=== PATIENT | female | born 1970 | race Caucasian/White ===

== ENCOUNTER 2022-10-21 13:32 | Outpatient (CLI) | payer BC, SELFPAY ==
--- NOTE | 2022-10-21 13:40 | CRLHL7_ITS ---
For Patients: As a result of the Century Cures Act, medical imaging exams and procedure reports are released immediately into your electronic medical record. You may view this report before your referring provider. If you have questions, please contact your health care provider. RIGHT SCREENING MAMMOGRAM WITH COMPUTER-AIDED DETECTION AND TOMOSYNTHESIS TECHNIQUE: CC and MLO views were obtained. These mammographic images have been obtained using full-field digital technique. These mammographic images were interpreted with the benefit of computer-aided detection. Breast Tomosynthesis was used in this interpretation. COMPARISON FILM: 09/13/21, 04/15/20, 04/10/18. FINDINGS: The breasts are heterogeneously dense, which may obscure small masses IMPRESSION: There is no radiographic evidence for malignancy. ASSESSMENT: BI-RADS Category 2: Benign RECOMMENDATION: Routine screening mammogram in 1 year. A lay language report of this examination will be provided to the patient. Sangeetha Gutierrez M.D. Diagnostic/Breast Radiologist [email or web address] PARKER/Dictated by: Sangeetha Gutierrez MD @ 10/24/2022 8:26:00 AM (Electronically Signed)
== END 2022-10-21 13:33 | disposition home or self-care (01) ==
LOC: MAMMO 13:33
PROVIDERS: PCP Family Medicine; Visit Provider Family Medicine
DX: Z12.31 Encounter for screening mammogram for malignant neoplasm of breast (principal); R92.2 Inconclusive mammogram
CPT/HCPCS: 77063; 77067

== ENCOUNTER 2022-11-04 11:33 | Outpatient (CLI) | payer BC, SELFPAY | END 2022-11-04 11:34 | disposition home or self-care (01) | LOC: NFLDREF 11-05 08:15 | PROVIDERS: PCP Family Medicine; Referring Provider Family Medicine; Visit Provider Family Medicine | DX: Z13.29 Encounter for screening for other suspected endocrine disorder (principal); Z83.49 Family history of other endocrine, nutritional and metabolic diseases | CPT/HCPCS: 84443 ==

== ENCOUNTER 2023-04-27 10:01 | Outpatient (CLI) | payer BC, SELFPAY | END 2023-04-27 10:02 | disposition home or self-care (01) | LOC: NFLDREF 12:51 | PROVIDERS: PCP Family Medicine; Referring Provider Physician Assistant; Visit Provider Nurse Practitioner Family | DX: Z79.899 Other long term (current) drug therapy (principal); F41.9 Anxiety disorder, unspecified; F90.9 Attention-deficit hyperactivity disorder, unspecified type; E55.9 Vitamin D deficiency, unspecified | CPT/HCPCS: 80076; 82306 ==

== ENCOUNTER 2023-05-22 11:38 | Outpatient (CLI) | payer BC, SELFPAY ==
--- NOTE | 2023-05-22 12:48 | W.ANESCHARGE ---
Anesthesia Charges Start Date/Time Anesthesia Start Date: 05/22/23 Anesthesia Start Time: 12:24 Stop Date/Time Anesthesia Stop Date: 05/22/23 Anesthesia Stop Time: 12:47
== END 2023-05-22 11:39 | disposition home or self-care (01) ==
LOC: OP CLINIC 11:38
PROVIDERS: PCP Family Medicine; Visit Provider Internal Medicine
DX: Z12.11 Encounter for screening for malignant neoplasm of colon (principal)
CPT/HCPCS: 00812; 45378; J2704

== ENCOUNTER 2023-10-24 15:37 | Outpatient (CLI) | payer BC, SELFPAY ==
--- NOTE | 2023-10-24 16:00 | MM_ITS ---
Patient: BARBARA SWAN Facility:?[facility] Patient ID:?[id number] Site Patient ID:?[id number]. Site :?1970 Study:?XRay-Breast Right 3D W/CAD-10/24/2023 4:17:11 PM Ordering Physician:?George Dennis Final Report: UNILATERAL RIGHT SCREENING MAMMOGRAM WITH COMPUTER-AIDED DETECTION AND TOMOSYNTHESIS TECHNIQUE: CC and MLO views were obtained. These mammographic images have been obtained using full-field digital technique. These mammographic images were interpreted with the benefit of computer-aided detection. Breast Tomosynthesis was used in this interpretation. COMPARISON FILM: 10/21/22, 09/13/21, 06/25/21 FINDINGS: The breast is heterogeneously dense, which may obscure small masses. IMPRESSION: There is no radiographic evidence for malignancy. ASSESSMENT: BI-RADS Category 1: Negative RECOMMENDATION: Routine screening mammogram in 1 year. A lay language report of this examination will be provided to the patient. Carson Monroy M.D. Diagnostic Radiologist [email or web address] Transcribed: 12:13 p.ivelisse acevedo/Dictated by: Carson Monroy MD @ 11/06/2023 10:11:00 AM Signed by:Los Monroy MD @11/06/2023 12:24:15 PM (Electronic Signature)
== END 2023-10-24 15:38 | disposition home or self-care (01) ==
LOC: MAMMO 15:38
PROVIDERS: PCP Family Medicine; Visit Provider Family Medicine
DX: Z12.31 Encounter for screening mammogram for malignant neoplasm of breast (principal); R92.2 Inconclusive mammogram
CPT/HCPCS: 77063; 77067

== ENCOUNTER 2023-12-22 16:14 | Outpatient (CLI) | payer BC, SELFPAY ==
--- OUTSIDE RECORDS SUMMARY | 2024-01-11 05:35 | XMS_ITS | Clinical Summary ---
Author Organization [facility] Address [place], [place] [address] Care Team Providers Care Jai Alai Player Name Role Phone Jessica Anne MD Primary Care Provider [phone]- [phone] Allergies Active Allergy Reactions Criticality Noted Date Comments Penicillins Rash 12/04/2006 Pollen Extracts Palpitations 12/04/2018 Medications Medication Sig Dispensed Refills Start Date End Date Status cholecalciferol, Vitamin D3, 2,000 unit tablet Take 2,000 Units by mouth. Active DULoxetine (CYMBALTA) 20 mg Delayed-release capsule TK 2 CS PO D 01/13/2020 Active lamoTRIgine (LAMICTAL) 25 mg tablet Daily 09/03/2018 Active LATUDA 40 mg tablet TK 1 T PO D WF 01/14/2020 A ctive cyclobenzaprine (FLEXERIL) 10 mg tabletIndications:Back pain, unspecified back location, unspecified back pain laterality, unspecified chronicity Take 1 tablet by mouth 3 times daily if needed for Muscle Spasm. 15 tablet 01/26/2020 Active Active Problems Problem Noted Date Diagnosed Date Cervical disc herniation 01/19/2018 Cervical radiculopathy at C6 01/19/2018 Cholelithiasis 07/20/2014 Overview: June 2014: on Ultrasound 1.2cm stone, no obvious symptoms, stone seen incidentally on low back x-ray. Major depressive disorder, recurrent episode, mo derate 01/17/2007 Immunizations Name Administration Dates Next Due AMB Influenza, IIV3 (Age >=3 years)(Flu Clinic Only) 07/10/2008 DTP 01/28/1971,1970,1970 MMR 10/21/1971 Oral Polio Vaccine 01/28/1971,1970 Td (Age >=7 Years) 08/06/1998 Tetanus Toxoid 07/31/1972 Tuberculin (PPD) 05/14/2008 Family History Medical History Relation Name Comments Alcohol/Drug Father alcohol, cancer Cancer Father mesothilioma, l gabriela cancer Other Paternal Aunt cerebral aneur ysm Relation Name Status Comments Father Paternal Aunt Social History Tobacco Use Types Packs/Day Years Used Date Smoking Tobacco: Former Smokeless Tobacco: Never Tobacco Cessation:Counseling Given: Yes Comments:Smoked for 3 years in her mid-twenties Alcohol Use Standard Drinks/Week Comments Yes 0 (1 standard drink = 0.6 oz pur e alcohol) very little Social Connections Answer Date Recorded Frequency of Communication with Friends and Fami ly Not on file 07/31/2021 Financial Resource Strain Answer Date R ecorded Difficulty of Paying Living Expenses Not on file 07/31/2021 Difficulty of Paying Living Expenses Not on file 07/31/2021 Sex and Gender Information Value Date Recorded Sex Assigned at Not on file Gender Identity Not on file Sexual Orientation Not on file Obstetrics History Para Term AB IAB SAB Ectopic Multiple Livin g Live Births 4 2 1 1 2 Date Outcome GA Total Labor Labor/2nd/3rd Weight Sex Type Anes PTL Zehra A1 A5 Name Clin SAB IAB Last Filed Vital Signs Vital Sign Reading Time Taken Comments Blood Pressure 126/76 01/26/2020 1:38 PM CDT Pulse 90 01/26/2020 1:38 PM CDT Temperature 36.9 ??C (98.4 ??F) 01/26/2020 1:38 PM CD T Respiratory Rate 16 01/26/2020 1:38 PM CDT Oxygen Saturation 100% 01/26/2020 1:38 PM CDT Inhaled Oxygen Concentration - - Weight 73.9 kg (163 lb) 01/26/2020 1:38 PM CDT Height 170.2 cm (5' 7) 12/27/2017 11:31 AM CDT Body Mass Index 25.53 12/27/2017 11:31 AM CDT Plan of Treatment Health Maintenance Due Date Last Done Comments Tdap 1981 Depression screening for age 12+ 1982 HIV for age 15-65 1985 Hepatitis C screening for age 18-79 1988 Tetanus booster 08/06/2008 08/06/1998 Colonoscopy through age 75 2015 Lipids for age 45-75 2015 12/01/2006, 11/02/2006, 10/05/2006, Additional history exists Mammogram for age 45-75 2015 BMI (ht and wt on same day) for age 18+ 12/27/2018 12/27/2017, 11/07/2016 Zoster (shingles) series for age 50+ (1 of 2) 2020 COVID-19 vaccine series (2022-24 season) 2023 Influenza for age 50-64 03/31/2024 07/10/2008 Pap test for age 21-65 05/11/2026 3, 05/11/2023, 03/27/2017, Additional history exists Pneumococcal series for age 6-64 Aged Out No longer eligible based on patient's age to complete this topic Procedures Procedure Name Priority Date/Time Associated Diagnosis Comments HPV THIN PREP Routine 05/11/2023 12:00 PM CDT CHOLESTEROL,TOTAL Routine 12/01/2006 8:4 0 AM CDT Acne Therapeutic Drug Monitoring Encounter from Last 3 Months or Most Recently Relevant to Health Maintenance Results * HPV HIGH RISK (05/11/2023 12:00 PM CDT) TYPE 16 Negative Negative 05/17/2023 11:43 AM CDT [facility] TYPE 18 Negative Negative 05/17/2023 11:43 AM CDT [facility] OTHER HIGH RISK TYPES Negative Negative 05/17/2023 11:43 AM CDT [facility] Other (Cervical) 05/11/2023 12:00 PM CDT 05/15/2023 11:48 AM CDT [facility]TRAL [facility] - 05/17/2023 11:43 AM CDT HPV types 16, 18, 31, 33, 35, 39, 45, 51, 52, 56, 58, 59, 66 and 68 DNA were undetectable or below the pre-set threshold. Methodology: Rubi Nicko 4800 HPV Test Analia Quiroga PA-C MICROBIOLOGY [facility]AL [facility]ORY [address] [place] [address], * CHOLESTEROL,TOTAL (12/01/2006 8:40 AM CDT) CHOLESTEROL,TO SOBIA 152 110 - 199 mg/dL [facility] Blood specimen (specimen) BLOOD SPECIMEN / Unknown 12/01/2006 8:40 AM CDT 12/01/2006 8:35 AM CDT Melina Kwok MD CHEMISTRY [facility] [address] [place] [address] from Last 3 Months or Most Recently Relevant to Health Maintenance Care Teams Jai Alai Player Relationship Specialty Start Date End Date Jessica Anne MD [address] [place] [address] PCP - General Internal Medicine 11/07/16
== END 2023-12-22 16:15 | disposition home or self-care (01) ==
LOC: NFLDREF 01-11 05:33
PROVIDERS: PCP Family Medicine; Referring Provider Family Medicine; Visit Provider Family Medicine
DX: Z13.29 Encounter for screening for other suspected endocrine disorder (principal)
CPT/HCPCS: 84443

== ENCOUNTER 2024-02-05 20:19 | Day surgery (SDC) | payer BC, SELFPAY ==
[2024-02-05] VITALS (8 sets, daily range): BP systolic 125–155; BP diastolic 73–93; PULSE 69–79; RESP 16–20; TEMP 36.6; O2SAT 95–100; BMI 25.0
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
--- NOTE | 2024-02-05 20:48 | CRLHL7_ITS ---
For Patients: As a result of the Century Cures Act, medical imaging exams and procedure reports are released immediately into your electronic medical record. You may view this report before your referring provider. If you have questions, please contact your health care provider. INDICATION: RUQ and epigastric pain. LIMITED ABDOMEN ULTRASOUND Technique: Multiple sonographic images were performed over the right upper quadrant. Findings: There is a 1.5 centimeter echogenic structure with acoustic shadowing, consistent with a gallstone, in the gallbladder neck region which does not appear to be mobile. No gallbladder wall thickening or pericholecystic fluid is seen. There was no sonographic Martinez`s sign. No intrahepatic biliary dilatation is seen and the common bile duct is normal in caliber, measuring 5 mm in diameter. The visualized portions of the liver, aorta, pancreas, and right kidney are unremarkable. IMPRESSION: 1.5 centimeter gallstone in the gallbladder neck, possibly impacted. No sonographic evidence of cholecystitis, however. ZACARIAS LAWRENCE MD [facility] Dictated by Cale Lawrence MD @ 02/05/2024 10:56:52 PM Dictated by: Cale Lawrence MD @ 02/05/2024 22:57:48 (Electronically Signed)
--- OUTSIDE RECORDS SUMMARY | 2024-02-05 20:48 | XMS_ITS | Clinical Summary ---
Author Organization [facility] Address [place], [place] [address] Care Team Providers Care Tube Sorter Name Role Phone Jessica Anne MD Primary Care Provider +1- [phone] Allergies Active Allergy Reactions Criticality Noted Date [...] 16 Negative Negative 05/17/2023 11:43 AM CDT [facility] TYPE 18 Negative Negative 05/17/2023 11:43 AM CDT [facility] OTHER HIGH RISK TYPES Negative Negative 05/17/2023 11:43 AM CDT [facility] Other (Cervical) 05/11/2023 12:00 PM CDT 05/15/2023 11:48 AM CDT [facility] - 05/17/2023 11:43 AM CDT HPV types 16, 18, 31, 33, 35, 39, 45, 51, 52, 56, 58, 59, 66 and 68 DNA were undetectable or below the pre-set threshold. Methodology: Rubi Nicko 4800 HPV Test Analia Quiroga PA-C MICROBIOLOGY [facility]TRAL LABORATORY [address] [place] [address], * CHOLESTEROL,TOTAL (12/01/2006 8:40 AM CDT) CHOLESTEROL,TO SOBIA 152 110 - 199 mg/dL [facility] Blood specimen (specimen) BLOOD SPECIMEN / Unknown 12/01/2006 8:40 AM CDT 12/01/2006 8:35 AM CDT Melina Kwok MD CHEMISTRY [facility] [address] [place] [address] from Last 3 Months or Most Recently Relevant to Health Maintenance Care Teams Tube Sorter Relationship Specialty Start Date End Date Jessica Anne MD [address] [place] [address] PCP - General Internal Medicine 11/07/16
[2024-02-05] MEDS: KETOROLAC 15 MG/ML inj IVP (21:23)
[2024-02-05] MEDS: ONDANSETRON 2 MG/ML inj 4 MG IVP (21:23)
[2024-02-05] MEDS: MORPHINE 4 MG/ML INJ IVP (21:23)
[2024-02-05] MEDS: 0.9 % SODIUM CHLORIDE 1000 ml 1,000 ML IV (21:23)
[2024-02-05 21:36] LABS: Basophils Absolute Auto 0.04 K/uL (0.00-0.30); Basophils Percent Auto 0.5 % (0.0-3.0); Eosinophils Absolute Auto 0.16 K/uL (0.00-0.50); Hematocrit 36.7 % (33.0-51.0); Hemoglobin* 12.1 gm/dL (12.0-16.0); Immature Granulocytes Abs Auto 0.01 K/uL (0.00-0.30); Immature Granulocytes Pct Auto 0.1 %; Lymphocytes Absolute Auto 1.86 K/uL (0.90-2.90); Lymphocytes Percent Auto 22.9 % (20-44); Mean Corpuscular HGB Conc 33 gm/dL (32-36); Mean Corpuscular Hemoglobin 27 pg (26-34); Mean Corpuscular Volume 83 fL (80-100); Monocytes Percent Auto 8.8 % (0.0-11.0); Neutrophils Absolute Auto 5.35 K/uL (1.7-7.0); Neutrophils Percent Auto 65.7 % (42.0-72.0); Platelet Count* 249 K/uL (140-440); RDW Coefficient of Variation % 11.9 % (11.5-15.5); Red Blood Count 4.43 m/uL (4.00-5.20); White Blood Count* 8.14 K/uL (4.50-11.00)
[2024-02-05 21:38] LABS: Slide Review Reflex No
[2024-02-05 21:39] LABS: Appearance Urine Clear (Clear); Bilirubin Urine Negative (Negative); Blood Urine Trace-lysed (Negative); Color Urine Yellow (Yellow); Glucose Urine Negative (Negative); Ketones Urine Negative (Negative); Leukocyte Esterase Urine Trace (Negative); Nitrite Urine Negative (Negative); Protein Urine Negative (Negative); Urobilinogen Urine 0.2 (0.2-1.0)
[2024-02-05 21:47] LABS: Albumin* 4.3 g/dL (3.3-5.0); Chloride* 103 mmol/L (96-114)
[2024-02-05 21:48] LABS: Potassium* 3.5 mmol/L (3.6-5.1); Sodium* 138 mmol/L (135-149)
[2024-02-05 21:50] LABS: Creatinine* 0.6 mg/dL (0.5-1.5); Est. Creatinine Clearance* 101.51; Estimated Glomerular Filt Rate 107 ml/min; RBC Urine 0-2 (0-2)
[2024-02-05 21:51] LABS: Alanine Aminotransferase* 15 U/L (4-35); Alkaline Phosphatase* 66 U/L (40-150); Anion Gap 7 mEq/L (7-15); Aspartate Amino Transferase* 25 U/L (12-35); Bilirubin Direct* 0.1 mg/dL (0.0-0.5); Bilirubin Total* 0.2 mg/dL (0.1-1.5); Blood Urea Nitrogen* 16 mg/dL (7-30); Calcium* 9.3 mg/dL (8.4-10.6); Carbon Dioxide* 28 mmol/L (20-32); Glucose* 110 mg/dL (60-115); Lipase* 71 U/L (23-300); Total Protein* 7.1 g/dL (6.0-8.3)
[2024-02-05 22:32] LABS: C Reactive Protein* < 0.5 mg/dL (0.5-1.0)
[2024-02-05] MEDS: METOCLOPRAMIDE HCL 10 MG in 0.9 % SODIUM CHLORIDE 100 ml 100 ML 306 MG IVPB (23:15)
[2024-02-06] VITALS (27 sets, daily range): BP systolic 107–135; BP diastolic 64–86; PULSE 53–73; RESP 16–20; TEMP 36.2–37.2; O2SAT 95–100; BMI 25.0
--- NOTE | 2024-02-06 07:35 | ED.NURSE ---
continues no pain. resting
--- OUTSIDE RECORDS SUMMARY | 2024-02-06 08:18 | XMS_ITS | Clinical Summary ---
Author Organization [facility] Address [place], [place] [address] Care Team Providers Care Block Saw Operator Name Role Phone Jessica Anne MD Primary Care Provider +1- [phone] Allergies Active Allergy Reactions Criticality Noted Date [...] 16 Negative Negative 05/17/2023 11:43 AM CDT [facility] TYPE 18 Negative Negative 05/17/2023 11:43 AM CDT [facility] OTHER HIGH RISK TYPES Negative Negative 05/17/2023 11:43 AM CDT [facility] Other (Cervical) 05/11/2023 12:00 PM CDT 05/15/2023 11:48 AM CDT [facility] - 05/17/2023 11:43 AM CDT HPV types 16, 18, 31, 33, 35, 39, 45, 51, 52, 56, 58, 59, 66 and 68 DNA were undetectable or below the pre-set threshold. Methodology: Rubi Nicko 4800 HPV Test Analia Quiroga PA-C MICROBIOLOGY [facility]AL LAB[facility]ATORY [address] [place] [address], * CHOLESTEROL,TOTAL (12/01/2006 8:40 AM CDT) CHOLESTEROL,TO SOBIA 152 110 - 199 mg/dL [facility] Blood specimen (specimen) BLOOD SPECIMEN / Unknown 12/01/2006 8:40 AM CDT 12/01/2006 8:35 AM CDT Melina Kwok MD CHEMISTRY [facility] [address] [place] [address] from Last 3 Months or Most Recently Relevant to Health Maintenance Care Teams Block Saw Operator Relationship Specialty Start Date End Date Jessica Anne MD [address] [place] [address] PCP - General Internal Medicine 11/07/16
[2024-02-06] MEDS: LACTATED RINGERS 1000 ML 1,000 ML 100 ML IV ×2 (08:25→12:27)
[2024-02-06 08:43] LABS: Ur HCG Qualitative* Negative (Negative)
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
[2024-02-06] MEDS: ERTAPENEM 1 GM inj IVPB (11:45)
[2024-02-06] MEDS: BUPIVACAINE 0.25% 30 ML 20 ML INJECTION (11:48)
--- NOTE | 2024-02-06 11:55 | SUR.OPER ---
PATIENT QUESTIONS ANSWERED SATISFACTORILY PREOPERATIVELY. PATIENT BROUGHT TO OR #1 PER CART. Patient positioned supine on OR #1 bed. The perioperative team supported arms bilaterally on arm boards. Final approval of positioning by surgeon.
--- NOTE | 2024-02-06 12:32 | W.ANESCHARGE ---
Anesthesia Charges Start Date/Time Anesthesia Start Date: 02/06/24 Anesthesia Start Time: 11:31 Stop Date/Time Anesthesia Stop Date: 02/06/24 Anesthesia Stop Time: 13:31
--- NOTE | 2024-02-06 13:13 | PM.GSPRC ---
Operative Note Date of procedure: 02/06/24 Pre-op diagnosis: Acute cholecystitis Post-op diagnosis: Same Type of Procedure: Laparoscopic cholecystectomy Indications: Patient is a 53-year-old female presented with clinical workup and symptoms consistent with acute cholecystitis. Different treatment options were reviewed with patient agreeing to proceed to the operating room. Risks and benefits of operative intervention were discussed at length with the patient. Risks included but was not limited to: Bleeding, infection, risk of damage to surrounding structures, possible need for additional procedures, possible need to convert to an open operation and postoperative complications such as pneumonia, pulmonary emboli or TN. All questions and concerns were addressed with the patient agreeing to proceed. Procedure Description: After discussing the risks and benefits of the procedure, the patient signed informed consent.? The operative site was marked and the patient was brought to the operating room and placed on the operating table in supine position.? Care was taken to pad the patient's pressure points.?? The patient was then intubated by anesthesia.?? The operative site was then prepped and draped in the usual sterile fashion.? A time-out was then performed. Entrance to the abdomen was gained via a 5 mm Visiport in the left upper quadrant. The abdomen was insufflated and briefly surveyed for signs of injury. There was none. 11 mm umbilical port was placed as well as 2 working ports along the right costal margin. Patient was then placed in reverse Trendelenburg position with the right side up. The gallbladder fundus was grasped and retracted cephalad. A small amount of dissection was needed to free omental adhesions from the gallbladder. The infundibulum was grasped. A combination of hook cautery and blunt dissection was used to carefully dissect out the cystic duct and artery until they could clearly be seen entering the gallbladder without any intervening structures. The gallbladder was dissected off the cystic plate to achieve the critical view. Once this was achieved the cystic duct and artery were each clipped with 2 clips proximally and 1 clip distally and transected with the scissors. The gallbladder was then taken off of the liver bed. And removed from the abdomen using an Endo-Catch bag. The gallbladder bed was surveyed for hemostasis, which was excellent. A small amount of bile which had spilled was suctioned from the abdomen. The ports were then removed under direct vision. The umbilical port fascia was closed with several interrupted 0 Vicryl. The skin was closed with absorbable subcuticular suture. Instrument sponge and needle counts were correct at the end of the case. The patient was then woken and transferred to the PACU in stable condition. Findings: Cholecystitis, edema of the gallbladder wall. Anesthesia: GETA Surgeon: Rosa Ruth MD Estimated blood loss (mL): 5 Specimen: Gallbladder Condition: stable Disposition: PACU
--- NOTE | 2024-02-06 13:30 | W.ANESCHARGE ---
Anesthesia Charges Start Date/Time Anesthesia Start Date: 02/06/24 Anesthesia Start Time: 11:31 Stop Date/Time Anesthesia Stop Date: 02/06/24 Anesthesia Stop Time: 13:31
[2024-02-06] MEDS: METOCLOPRAMIDE HCL 5 MG/ML INJ 10 MG IVP (14:15)
[2024-02-06] MEDS: fentaNYL 100 MCG/2 ML inj 50 MCG IVP (14:15)
[2024-02-06] MEDS: HYDROCODONE-ACETAMIN 5-325 MG 1 TAB PO (14:45)
== END 2024-02-06 15:35 | disposition home or self-care (01) ==
LOC: ED 02-06 08:14 → SS 02-06 08:16
PROVIDERS: Family Medicine; Emergency Provider Surgery; PCP Family Medicine; Visit Provider Surgery
PROC: 0FT44ZZ Resection of Gallbladder, Percutaneous Endoscopic Approach (ICD-10-PCS; CPT 47562; principal; 2024-02-06 11:45)
DX: K80.00 Calculus of gallbladder with acute cholecystitis without obstruction (principal); R10.11 Right upper quadrant pain; R11.0 Nausea; R19.7 Diarrhea, unspecified
CPT/HCPCS: 47562; 00790; 36415; 76705; 80048; 80076; 81001; 81025; 83690; 85025; 86140; 87086; 88304; 94761; 99284; 99285; A9270; J0665; J1100; J1170; J1335; J1885; J2250; J2270; J2371; J2405; J2704; J2710; J2765; J3010; J7030; J7120